=== PATIENT | male | born 2005 | race Caucasian/White ===

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

== ENCOUNTER 2024-06-11 17:51 | Emergency (ER) | payer OTHER ==
[2024-06-11 17:56] VITALS: RESP 18; TEMP 98.2; BMI 18.2
[2024-06-11 19:23] LABS: BASO % 0.5 % (0-2.0); EOS % 0.5 % (0-4.5); HEMATOCRIT 44.7 % (35.4-49); HEMOGLOBIN 15.7 GM/dL (11.7-16.9); MCH 31.2 pg (25.7-33.7); MCHC 35.1 g/dl (32.0-35.9); MEAN CELL VOLUME 88.8 fl (80-96); MEAN PLT VOLUME 7.4 fl (7.5-11.1); MONO % 8.6 % (3.8-10.2); NEUT % 67.4 % (42.8-82.8); PLATELET COUNT 298 10^3/uL (134-434); RBC 5.03 M/mm3 (4.00-5.60); RDW 12.9 % (11.9-15.9); WHITE BLOOD COUNT 8.1 K/mm3 (4.0-10.0)
[2024-06-11 19:26] LABS: EPI CELLS 8 /uL (0-25.1); HYALINE CASTS 0 /uL (0-3.1); PH,URINE 6.5 (5.0-8.0); URINE APPEARANCE CLEAR; URINE BACTERIA 11 /uL (0-1359); URINE BILIRUBIN NEGATIVE (NEGATIVE); URINE COLOR YELLOW; URINE GLUCOSE (UA) NEGATIVE (NEGATIVE); URINE KETONE NEGATIVE (NEGATIVE); URINE LEUK ESTERASE TRACE (NEGATIVE); URINE NITRITE NEGATIVE (NEGATIVE); URINE PROTEIN NEGATIVE (NEGATIVE); URINE RBC 60 /uL (0-23.9); URINE WBC 87 /uL (0-25.8)
[2024-06-11 19:30] LABS: INR 1.04 (0.83-1.09)
[2024-06-11 19:32] LABS: ACTIVATED PTT 32.7 SECONDS (25.2-36.5)
[2024-06-11 19:47] LABS: POTASSIUM 4.1 mmol/L (3.5-5.1)
[2024-06-11 19:51] LABS: BLOOD UREA NITROGEN 15.2 mg/dL (7-18); CALCIUM 9.7 mg/dL (8.5-10.1)
[2024-06-11 19:56] LABS: BILIRUBIN,TOTAL 0.6 mg/dL (0.2-1); TOT PROT 8.7 g/dl (6.4-8.2)
[2024-06-11] MEDS ORDERED: cefTRIAXone SODIUM 1 GM VIAL ONE (20:01)
[2024-06-11 20:36] VITALS: BP 127/82; PULSE 84
[2024-06-11 20:47] LABS: HIV INTERPRETATION NEGATIVE (NEGATIVE)
== END 2024-06-11 20:36 | disposition home or self-care (01) ==
LOC: JER 17:51
DX: N50.811 Right testicular pain (principal)
CPT/HCPCS: 36415; 76870-TC; 80053; 81003; 85025; 85610; 85730; 86780; 86850; 86900; 86901; 87086; 87389; 87491; 87591; 99284-25